=== PATIENT | male | born 1965 | race Caucasian/White ===

== ENCOUNTER 2016-05-30 10:48 | Emergency (ER) | payer BC ==
[2016-05-30 11:22] LABS: Hematocrit 42.8 % (42.0-52.0); Hemoglobin 15.1 gm/dL (13.5-18.0); Mean Cell Volume 88.1 fl (78-100); Mean Corpuscular Hemoglobin 31.1 pg (27-31); Mean Corpuscular Hgb Conc 35.3 g/dl (32-36); Mean Platelet Volume 8.7 fl (6.0-9.5); Neutrophil # 2.2 K/mm3 (1.3-6.0); Neutrophil % 49.1 % (42-75.0); Platelet Count 194 K/mm3 (150-450); Red Blood Count 4.86 M/mm3 (4.7-6.0); Red Cell Distribution Width 12.5 % (11.5-14.0); White Blood Count 4.5 K/mm3 (4.0-10.5)
--- NOTE | 2016-05-30 11:23 | ERNOTE ---
Date of Service: 05/30/16 Time Seen by Provider: 05/30/16 11:09 Stated Complaint: CHEST PAIN NUMB HANDS SOB Immunizations: IMMUNIZATION HX Immunizations Up to Date Yes History of Influenza Vaccine Yes Allergies/Adverse Reactions: Allergies Sulfa (Sulfonamide Antibiotics) Adverse Reaction (Intermediate, Verified 10:57) Vomiting, passes out, sweating, rash azithromycin [From Zithromax Z-Dustin] Adverse Reaction (Verified 05/30/16 10:57) Home Medications: HOME MEDICATIONS Desvenlafaxine Succinate [Pristiq] 50 mg PO DAILY 05/30/16 [Last Taken Unknown] Hydrocodone/Acetaminophen [Lortab 5-325 mg Tablet] 1 each PO Q6H PRN #14 tablet 05/30/16 [Last Taken Unknown] Meloxicam 7.5 mg PO DAILY #10 tablet 05/30/16 [Last Taken Unknown] - History of Present Ilness Narrative: Patient presents to the ER with multiple complaints his symptoms been ongoing for the past 2 months. Initially starts out with lower extremity pain and body aches. He's also notice intermittent upper chest/abdominal pain. The pain is worse with movements as he is lying in the emergency room bed he's not having any pain whatsoever. He occasionally gets short of breath, but he is a smoker. Recently he's been getting over a bronchitis/cold. Denies any documented fever but has felt warm. No nausea vomiting or diarrhea. Once again he is having alot of body and joint pain more so in the lower extremities than the upper extremities. Denies any headache, denies any burning urination or any other urinary symptoms. Does feel his abdomen is distended and has some generalized abdominal pain and that also has been intermittent. Slight nasal congestion and no runny nose. No diarrhea no vomiting. Timing: intermittent Severity: mild Associated Symptoms: Reports: chest pain/soreness, cough, shortness of breath, muscle aches. Denies: dizziness, lightheadedness, earache, headache, sore throat, fever/chills Review of Systems - Review of Systems Constitutional: Present: weakness, fatigue, malaise. Absent: fever EYE: Absent: eye pain, eye discharge Respiratory: Present: shortness of breath, cough. Absent: orthopnea, wheezing Cardiology: Present: chest pain - patient has been having some intermittent chest pain and ongoing for 2 months denies any present chest pain at this time he has had a stress test done in the past has been negative Gastrointestinal/Abdominal: Present: abdominal pain. Absent: nausea, vomiting, diarrhea, constipation Musculoskeletal: Present: muscle pain, muscle stiffness, joint pain. Absent: back pain, joint swelling Endocrine: Present: excessive sweating All Other Systems: All systems neg except as marked - Patient's Past Medical History Patient History - Medical: Chronic Pain, GERD, Osteoarthritis, Other Patient History - Cancer: No Hx of Cancer Patient History - Surgical Procedures: Appendectomy, Total Knee Replacement, Other - Family History Father Family History - Medical: No pertinent hx Family History - Cardiac/Respiratory: No pertinent hx - Social History Living Situations: significant other Smoking Status: Current every day smoker Have you smoked in the past 12 months: Yes Alcohol Use: none Drug Use: none Physical Exam - Physical Exam General Appearance: Present: wd/wn, alert, no apparent distress Ears, Nose, Throat: Present: normal ENT inspection, normal pharynx Neck: Present: normal inspection, nontender, supple, full range of motion Respiratory: Present: no respiratory distress - ligament, normal breath sounds, no accessory muscle use, chest nontender, lungs clear Cardiovascular/Chest: Present: regular rate, rhythm, no murmur, normal peripheral pulses Gastrointestinal/Abdominal: Present: normal bowel sounds, nontender, nondistended, soft - 70, no organomegaly Back Exam: Present: normal inspection, normal range of motion, no CVA tenderness , no vertebral tenderness Extremity Exam: Present: normal inspection, non-tender, no edema, normal range of motion Neurological Exam: Present: alert, oriented - there is, normal mood/affect, no motor/sensory deficits Skin Exam: Present: normal color, warm/dry - some of the doctor's lounge Lymphatic Exam: Present: no adenopathy - l ED Progress - Results and Orders Patient's Lab Results:: I have reviewed the patient's lab results. - Vital Signs Patient's Vital Signs:: I have reviewed the patient's vital signs. Vital Signs: Vital Signs 05/30/16 10:53 Temperature 36.2 C L Pulse Rate 93 Respiratory 14 Rate Blood Pressure 137/84 O2 Sat by Pulse 98 Oximetry - EKG EKG: NSR, nonspecific ST T wave changes EKG read: Interp. by me EKG Comments: EKG shows a normal sinus rhythm no acute changes nonspecific ST-T wave changes, heart rate at 86 bpm in comparison to the EKG of 08/08/2014 no new changes appears to be very similar. - X-Ray X-Ray #1 X-Ray: chest - chest x-ray does not show any evidence of acute process. - Progress/Reassessment Chief Complaint: Upper Respiratory Symptoms Progress:: Improved - Transfer of Care Expected Disposition: Discharge Additional Notes: Patient is doing well reviewed the lab work and an chest x-ray with the patient. This is been going on for the past 2 months. Ahead and discharge him home try to get his pain under better control. Follow-up with family doctor in the next 2-3 days return back to the ER with any change or worsening symptoms. Warning signs and symptoms have been reviewed with the patient and returned back to the ER with good understanding Departure - Departure Clinical Impression: Atypical chest pain, Myalgia, Viral syndrome Disposition: Home Follow Up Needed Condition: Good Instructions: Chest Wall Pain, [id number], Muscle Pain, Adult Referrals: Tanner Hu DO [Primary Care Provider] - Prescriptions: Hydrocodone/Acetaminophen [Lortab 5-325 mg Tablet] 1 each PO Q6H PRN #14 tablet PRN Reason: Pain Meloxicam 7.5 mg PO DAILY #10 tablet
[2016-05-30] MEDS ORDERED: KETOROLAC TROMETHAMINE 60 MG/2 ML VIAL IM ONE ×2 (11:26→11:30)
[2016-05-30] MEDS ORDERED: HYDROcodone/ACETAMINOPHEN 1 EACH TABLET PO ONE (11:26)
[2016-05-30] MEDS ORDERED: HYDROcodone/ACETAMINOPHEN 1 EACH TABLET ONE (11:30)
[2016-05-30 11:38] LABS: Albumin * 3.7 gm/dl (3.4-5.0); Anion Gap 11.2 mmol/L (6.8-13.8); Bilirubin, Total 0.4 mg/dL (0.0-1.1); Ca. Corrected For Albumin 8.9 mg/dL (8.4-10.2); Carbon Dioxide 27.8 mmol/L (24-32.6); Total Protein 7.1 gm/dL (6.2-8.2)
[2016-05-30 11:39] LABS: Troponin I 0.041 ng/ml (0.00-0.10)
[2016-05-30 13:50] VITALS: BP 128/71
== END 2016-05-30 14:32 | disposition home or self-care (01) ==
LOC: ER 10:48
DX: R07.89 Other chest pain (principal); M79.1 Myalgia; B34.9 Viral infection, unspecified; F17.210 Nicotine dependence, cigarettes, uncomplicated; Z96.659 Presence of unspecified artificial knee joint; M19.90 Unspecified osteoarthritis, unspecified site